=== PATIENT | male | born 1965 | race Caucasian/White ===

== ENCOUNTER 2024-07-23 06:23 | Day surgery (SDC) | payer OTHER, SELFPAY ==
[2024-07-23 08:16] LABS: Glucose - Point of Care 126 mg/dl (70-99)
== END 2024-07-23 10:04 | disposition home or self-care (01) ==
LOC: GI 06:23
PROVIDERS: ATTENDING PHYSICIAN Internal Medicine Gastroenterology
DX: Z12.11 Encounter for screening for malignant neoplasm of colon (principal); D12.3 Benign neoplasm of transverse colon; D12.2 Benign neoplasm of ascending colon; D12.5 Benign neoplasm of sigmoid colon; K63.5 Polyp of colon; K64.0 First degree hemorrhoids; Z80.0 Family history of malignant neoplasm of digestive organs
CPT/HCPCS: 45385; 45380; 88305; 82962

== ENCOUNTER 2024-09-03 06:21 | Day surgery (SDC) | payer OTHER, SELFPAY ==
[2024-09-03 10:10] VITALS: BP 116/83; BMI 27.5
[2024-09-03 10:13] VITALS: BMI 27.5
[2024-09-03 12:00] VITALS: BP 111/70
[2024-09-03 12:15] VITALS: BP 124/74
[2024-09-03 12:23] VITALS: BP 122/75
== END 2024-09-03 12:30 | disposition home or self-care (01) ==
LOC: GI 06:21
PROVIDERS: ATTENDING PHYSICIAN Internal Medicine Gastroenterology
DX: K64.0 First degree hemorrhoids (principal); D12.2 Benign neoplasm of ascending colon; D12.5 Benign neoplasm of sigmoid colon
CPT/HCPCS: 45390; 45385; 88305

== ENCOUNTER 2025-05-23 06:26 | Day surgery (SDC) | payer OTHER, SELFPAY | END 2025-05-23 12:16 | disposition home or self-care (01) | LOC: GI 06:26 | PROVIDERS: ATTENDING PHYSICIAN Internal Medicine Gastroenterology | DX: Z12.11 Encounter for screening for malignant neoplasm of colon (principal); K63.5 Polyp of colon; K63.89 Other specified diseases of intestine; K64.9 Unspecified hemorrhoids; Z86.0100 Personal history of colon polyps, unspecified; Z98.890 Other specified postprocedural states | CPT/HCPCS: 45380; 88305 ==